=== PATIENT | female | born 1935 | race Caucasian/White ===

== ENCOUNTER 2023-02-09 13:15 | Emergency (ER) | payer BC, OTHER ==
[~2023-02-09] VITALS: Ht 162.6 cm; Wt 46.7 kg
--- NOTE | 2023-02-09 13:24 | NUR ---
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 NOTED R SIDED FACIAL BRUING
--- NOTE | 2023-02-09 13:45 | NUR ---
TAKEN TO CT
--- NOTE | 2023-02-09 15:48 | NUR ---
[facility] TRANSPORT SET UP, ETA IS 1700
--- NOTE | 2023-02-09 17:30 | NUR ---
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
[2023-02-09 19:17] VITALS: BP 119/88
== END 2023-02-09 17:40 | disposition home or self-care (01) ==
LOC: ER 13:17
DX: S02.2XXA Fracture of nasal bones, initial encounter for closed fracture (principal); F03.90 Unspecified dementia, unspecified severity, without behavioral disturbance, psychotic disturbance, mood disturbance, and anxiety; I10 Essential (primary) hypertension; Z88.0 Allergy status to penicillin; W01.0XXA Fall on same level from slipping, tripping and stumbling without subsequent striking against object, initial encounter; Y93.89 Activity, other specified; Y92.89 Other specified places as the place of occurrence of the external cause; Y99.8 Other external cause status
CPT/HCPCS: 70450-TC; 70486-TC; 72170-TC